=== PATIENT | male | born 1965 ===

== ENCOUNTER 2021-03-21 06:56 | Emergency (ER) | payer OTHER ==
[2021-03-21] MEDS ORDERED: Lorazepam 2 MG/ML VIAL ONE (07:49)
[2021-03-21] MEDS ORDERED: levETIRAcetam 500 MG/5 ML VIAL ONE (07:50)
[2021-03-21 13:31] LABS: Mean Corpuscular HGB CONC 35.7 g/dL (32.0-36.0); Mean Corpuscular Volume 114.9 fl (81.2-95.1); Mean Platelet Volume 10.1 fl (7.4-10.4); Platelet Count 175 10x3/uL (150-450); RBC Distribution Width 12.7 % (11.5-14.5); Red Blood Cell (RBC) Count 2.68 10x6/uL (4.32-5.72); White Blood Cell (WBC) Count 6.4 10x3/uL (3.5-10.5)
[2021-03-21 13:44] LABS: ALT (SGPT) 13 U/L (8-55); AST (SGOT) 19 U/L (5-34); Alkaline Phosphatase 66 U/L (40-110); Anion Gap 13 mmol/L (10-20); BUN (Urea Nitrogen) 9 mg/dL (8.4-25.7); Bilirubin, Total 0.6 mg/dL (0.2-1.2); Calc. Creatinine Clearance 0 mL/min (70-130); Carbon Dioxide 21 mmol/L (22-29); Chloride 111 mmol/L (98-107); Globulin 2.9 g/dL (2.4-3.5); Glucose 101 mg/dL (70-105); Potassium 4.3 mmol/L (3.5-5.1); Protein, Total 6.9 g/dL (6.0-8.3); Sodium 141 mmol/L (136-145)
[2021-03-21 14:02] LABS: Macrocytosis SLIGHT = 6-15 cells (100X) (0-5/hpf); Platelet Morphology Comment Appears Adequate
[2021-03-21 14:12] LABS: #Monocytes 0.5 10x3/uL (0.0-1.1); #Neutrophils 3.5 10x3/uL (1.5-8.4); %Basophils 0.3 % (0.0-2.0); %Eosinophils 0.2 % (0.0-6.0); %Lymphocytes 37.4 % (18.0-47.0); %Monocytes 7.5 % (0.0-10.0); %Neutrophils 54.3 % (40.0-75.0)
== END 2021-03-21 15:05 ==
LOC: CSHERS 06:56
DX: R56.9 Unspecified convulsions (principal); I69.398 Other sequelae of cerebral infarction; G93.89 Other specified disorders of brain; E87.2 Acidosis; Z91.14 Patient's other noncompliance with medication regimen
CPT/HCPCS: 36416; 70450; 80053; 85025; 96374; 96375; J1953; J2060